=== PATIENT | female | born 2000 | race Caucasian/White ===

== ENCOUNTER 2020-02-06 09:50 | Emergency (ER) | payer OTHER, SELFPAY ==
[~2020-02-06] VITALS: Ht 157.5 cm; Wt 65.8 kg
[2020-02-06 10:27] VITALS: BP 110/70
--- NOTE | 2020-02-06 10:29 | NUR ---
Patient triaged in overflow tent.
--- NOTE | 2020-02-06 10:30 | NUR ---
COVID-19 SWAB COLLECTED---PT REQUESTING TESTING AFTER BEING EXPOSED TO COVID-19 POSITIVE PT C/O SUBJECTIVE FEVER
--- NOTE | 2020-02-06 10:30 | NUR ---
Dr. Bledsoe is evaluating the patient in the overflow tent.
--- NOTE | 2020-02-06 10:35 | NUR ---
REQUESTING COVID-19 TEST S/P BEING EXPOSED LAST WEEK TO A POSITIVE PT AT WORK FOR SUBJECTIVE FEVER
[2020-02-06 10:52] VITALS: BP 110/70
--- NOTE | 2020-02-06 10:53 | NUR ---
Patient discharged with v/s stable. Written and verbal after care instructions given and explained. Patient verbalized understanding. Ambulatory with steady gait. All questions addressed prior to discharge. Advised to follow up with PMD.
== END 2020-02-06 10:54 | disposition home or self-care (01) ==
LOC: MED 09:50 → EEVIPCON 09:50 → MED 10:54
DX: R50.9 Fever, unspecified (principal); E07.9 Disorder of thyroid, unspecified; Z20.828 Contact with and (suspected) exposure to other viral communicable diseases
CPT/HCPCS: 99283; U0003; 99281